=== PATIENT | male | born 1995 | race Caucasian/White ===

== ENCOUNTER 2018-02-21 20:56 | Emergency (ER) | payer OTHER ==
--- NOTE | 2018-02-21 21:52 | EDPHY ---
H & P Time Seen by Provider: 02/21/18 21:25 HPI/ROS: Chief complaint: Left hand laceration History of present illness: This is a 22-year-old male who presents to the emergency department for a left hand laceration. Patient was at work, cleaning a glass when it broke and cut his hand. He has had mild pain. Bleeding controlled with a dressing. No report of abnormal coolness or paresthesias. No difficulty moving the digits of the hand. His tetanus is up-to-date. Smoking Status: Never smoked Physical Exam: General: Alert, nontoxic. Skin: 2 cm laceration in the thenar region. No deep structure or foreign body contamination appreciated. Musculoskeletal: Patient has full range of motion and strength all coles all joints all digits of the hand. He is moving the wrist in all coles without difficulty. Vascular: Capillary refill brisk in all digits of the left hand. Radial pulse 2 +. Neurologic: Light touch and two-point discrimination intact in all digits. Constitutional: Initial Vital Signs Temperature (C) 37.1 C 02/21/18 21:12 Heart Rate 91 02/21/18 21:12 Respiratory Rate 16 02/21/18 21:12 Blood Pressure 119/83 H 02/21/18 21:12 O2 Sat (%) 95 02/21/18 21:12 O2 Delivery Mode Room Air Allergies/Adverse Reactions: No Known Allergies Allergy (Unverified 02/21/18 21:14) Home Medications: Medication Instructions Recorded NK [No Known Home Meds] 02/21/18 MDM/Departure - MDM Procedures: Procedure: Laceration repair. Verbal consent was obtained from the patient. The 2 cm laceration on the left hand was anesthetized in the usual fashion. The wound was irrigated, draped and explored to its base with a gloved finger. There were no deep structures involved. No tendon injury was identified. No foreign bodies appreciated. The wound was repaired with 5 0 Prolene, 6 simple interrupted sutures. The wound repair was simple. The procedure was performed by myself. ED Course/Re-evaluation: Patient seen under the supervision of my secondary supervising physician Dr. Mayelin Cruz. Patient presents for a left hand laceration. His tetanus is up-to-date. His hand is neurovascularly intact. He has good musculoskeletal control. I offered an x-ray to evaluate for foreign body, he declined. Wound is cleaned, repaired and dressed. He is asked to follow up with a hand doctor or worker's compensation for recheck. Return precautions are given. The patient voiced understanding and agreement with plan. Differential Diagnosis: Included but not limited to simple laceration, deep structure injury, foreign body contamination - Depart Disposition: Home, Routine, Self-Care Clinical Impression: Hand laceration Qualifiers: Encounter type: initial encounter Foreign body presence: without foreign body Laterality: left Qualified Code(s): S61.412A - Laceration without foreign body of left hand, initial encounter Condition: Good Instructions: Laceration (ED) Additional Instructions: Follow-up with a hand doctor or worker's compensation next week for recheck Stitches to be removed in 7-10 days If symptoms worsen or new symptoms develop return to the emergency room for recheck Referrals: NONE *PRIMARY CARE P,. [Primary Care Provider] - As per Instructions Stewart Dickson MD [Medical Doctor] - As per Instructions
[2018-02-22 06:16] VITALS: BP 118/76
== END 2018-02-21 22:43 | disposition home or self-care (01) ==
PROC: 0HQGXZZ Repair Left Hand Skin, External Approach (ICD-10-PCS; principal; 2018-02-21)
DX: S61.412A Laceration without foreign body of left hand, initial encounter (principal); W25.XXXA Contact with sharp glass, initial encounter; Y99.8 Other external cause status
CPT/HCPCS: L3807